=== PATIENT | male | born 1950 | race Caucasian/White ===

== ENCOUNTER → 2017-01-31 | Outpatient (CLI) | payer MEDICARE ==
[~2017-01-31] MED LIST: AMARYL4 MG PO; Amaryl PO; Aspirin E.C. PO; GLUCOPHAGE1000 MG PO; Glucophage PO; HYZAAR 100-21 TABLET PO; KEFLEX500 MG PO; Pravachol PO; Vicodin,Norco 5/325 PO; Zestril,Prinivil PO
== END | disposition home or self-care (01) ==
LOC: CDC 09:19
DX: I45.10 Unspecified right bundle-branch block (principal); I49.9 Cardiac arrhythmia, unspecified; I44.4 Left anterior fascicular block; H25.11 Age-related nuclear cataract, right eye
CPT/HCPCS: 93000

== ENCOUNTER 2018-05-20 17:33 | Emergency (ER) | payer OTHER, MEDICARE ==
[~2018-05-20] VITALS: Ht 180.3 cm; Wt 91.6 kg
[2018-05-20] MEDS ORDERED: PERCOCET 5/31 TABLET PO (19:24)
[2018-05-20] MEDS ORDERED: MOTRIN800 MG PO (19:24)
[2018-05-20 19:35] VITALS: BP 131/85
== END 2018-05-20 19:37 | disposition home or self-care (01) ==
LOC: EME 17:33
PROC: 2W3CX1Z Immobilization of Right Lower Arm using Splint (ICD-10-PCS; principal; 2018-05-20)
DX: S52.591A Other fractures of lower end of right radius, initial encounter for closed fracture (principal); W17.89XA Other fall from one level to another, initial encounter; E11.9 Type 2 diabetes mellitus without complications; Z79.84 Long term (current) use of oral hypoglycemic drugs; F17.200 Nicotine dependence, unspecified, uncomplicated
CPT/HCPCS: 73090; 73110; 99281; 99284